=== PATIENT | female | born 1955 | race Caucasian/White ===

== ENCOUNTER → 2025-06-11 12:40 | Outpatient (BNVA) | payer MEDICARE, SELFPAY | PROVIDERS: Family Provider Internal Medicine; PCP Specialist; Visit Provider Internal Medicine Rheumatology | DX: M25.50 Pain in unspecified joint (principal); I73.00 Raynaud's syndrome without gangrene; M79.7 Fibromyalgia; Z79.899 Other long term (current) drug therapy; Z71.85 Encounter for immunization safety counseling | CPT/HCPCS: 36415; 80076; 82306; 82565; 83520; 85025; 85651; 86140; 86200; 86480; 86704; 86803; 87340; 99204 ==

== ENCOUNTER 2025-10-11 11:37 | Outpatient (CLI) | payer MEDICARE, SELFPAY ==
[2025-10-11 12:27] LABS: Hematocrit 42.4 % (36-47); Hemoglobin 14.00 g/dL (11.27-16.99); Mean Corpuscular HGB Conc 33.0 g/dL (30-55); Mean Corpuscular Hemoglobin 30.8 pg (27-33); Mean Corpuscular Volume 93.4 fl (85-98); Nucleated Red Blood Cells % 0 %; Platelet Count 220 10^3/cmm (157-399); Red Blood Count 4.54 10^6/uL (3.85-5.65); White Blood Count 5.88 10^3/uL (3.29-11.43)
[2025-10-11 12:48] LABS: Alanine Aminotransferase 23 U/L (0-33); Albumin Level 4.6 g/dL (3.5-5.2); Alkaline Phosphatase 105 U/L (35-105); Aspartate Amino Transferase 24 U/L (0-32); Globulin 2.5 g/dL (1.3-4.6); Total Protein 7.1 g/dL (6.6-8.7)
== END 2025-10-11 11:38 | disposition home or self-care (01) ==
PROVIDERS: Family Provider Internal Medicine; PCP Specialist; Visit Provider Internal Medicine Rheumatology
DX: Z79.899 Other long term (current) drug therapy (principal)
CPT/HCPCS: 36415; 80076; 82565; 85025; 85651; 86140

== ENCOUNTER → 2025-10-16 13:35 | Outpatient (BNVA) | payer MEDICARE, SELFPAY | PROVIDERS: Family Provider Internal Medicine; PCP Specialist; Visit Provider Internal Medicine Rheumatology | DX: I73.00 Raynaud's syndrome without gangrene (principal); M79.7 Fibromyalgia; Z79.899 Other long term (current) drug therapy; Z71.85 Encounter for immunization safety counseling; M06.041 Rheumatoid arthritis without rheumatoid factor, right hand; M06.042 Rheumatoid arthritis without rheumatoid factor, left hand | CPT/HCPCS: 99214 ==